=== PATIENT | male | born 1945 | race Caucasian/White ===

== ENCOUNTER 2018-05-06 13:53 | Outpatient (RCR) | payer MEDICARE, BC ==
[2016-01-04 09:52] VITALS: BMI 34.2
[~2018-05-06 13:53] MED LIST: ADV230RPT INH; ALBU8.5H IH; ASPI-1441 PO; ASPI81TA94 PO; ATE50 PO; CALC-771 PO; CALC-965 PO; CAR200 PO; CARB200C4 PO; CHOL100039 PO; ECON15CR10 TP; FLUT16SP19 NS; FLUT16SP20 NS; HCTZ25 PO; LOSA-54 PO; LOVA20TA99 PO; MELO-149 PO; NAPR1TAB10 PO; NAPR220C12 PO; NIA500 PO; OLME1TAB69 PO; OMEG-44 PO; OMEG1CAP PO; OMEP10CA40 PO; ONDA4TAB PO; OXYC-865 PO; PAN40 PO; TRAM-420 PO; TRAM1TAB PO; TRIORA TP
--- NOTE | 2018-05-06 15:09 | RADIOLOGY IMAGING REPORT ---
FACILITY: [facility] [place] PATIENT NAME: Reza Zelaya : 1945 MR: [id number] V: [id number] EXAM DATE: ORDERING PHYSICIAN: JIGNESH NAIR TECHNOLOGIST: Location: [facility] Patient: Reza Zelaya : 1945 Visit/Account:[id number] Date of Sevice: 05/06/2018 Exam type: CHEST PA AND LAT History: . Esophagus, chronic cough Comparison: July 30, 2016 Findings: All bibasilar scarring again noted. There is no evidence of acute appearing infiltrates, pleural eff usions or pulmonary edema. Cardiac silhouette is normal in size. Left shoulder arthroplasty is note d. IMPRESSION: 1. Bibasilar scarring appears unchanged Report Dictated By: Jodi Mata MD at 05/06/2018 3:03 PM Report E-Signed By: Jodi Mata MD at 05/06/2018 3:05 PM WSN:[email or web address]
--- NOTE | 2018-05-07 14:09 | RADIOLOGY IMAGING REPORT ---
FACILITY: [facility] PATIENT NAME: Reza Zelaya : 1945 MR: [id number] V: [id number] EXAM DATE: ORDERING PHYSICIAN: JIGNESH NAIR TECHNOLOGIST: Location: [facility] [place] Patient: Reza Zelaya : 1945 Visit/Account:[id number] Date of Sevice: 05/07/2018 DEXA Scan Clinical history: Osteoporosis screening. Comparison: None. HIP: Bone mineral density (BMD) measured in the Left total hip region correlates with a Z-score 1.0 and a T-score of 0.6 which is Normal as defined by the World Health Organization. The corresponding risk of fracture in the hip is Not increased compared with a young adult reference population. Bone mineral density (BMD) measured in the Femoral Neck region measures 1.002 g/cm2. FOREARM: The bone mineral density (BMD) measured in the ULTRADISTAL Left forearm, where trabecular bone predom inates, correlates with a Z-score 1.9 and a T-score of 1.1 which is normal as defined by the World He alth Organization. The corresponding risk of fracture in the distal forearm is normal compared with a young adult reference population. The bone mineral density (BMD) in the MIDSHAFT of the forearm, where cortical bone predominates, don elates with a Z-score -0.1 and a T-score of -1 which is as defined by the World Health Organization. The corresponding risk of fracture in the midshaft of the forearm is 2 times increased compared with a young adult reference population. IMPRESSION: 1. Left Hip: Normal. 2. Femoral Neck: Bone Mineral Density is 1.00 to g/cm2 3. Left Forearm: Normal. The next DEXA scan of this patient should include the following sites: Left hip and the left forearm. FRAX? WHO Fracture Risk Assessment Tool link: <http://www.shef.ac.uk/FRAX/tool.jsp?locationValue=9> PLEASE NOTE: 1) The World Health Organization defines low BMD as follows: T-score Normal > -1 Osteopenia < -1 and > -2.5 Osteoporosis < -2.5 without fractures Established osteoporosis < -2.5 with fractures 2) In general, you may wish to consider: Diagnosis Treatment Follow-up DEXA Normal BMD Prevention 2-3 years Osteopenia Prevention/therapy 1-2 years Osteoporosis Therapy Yearly 3) Fracture risk estimated from the T-score is more accurate for vertebral fractures (often spontane ous) than for hip fractures. Report Dictated By: Jodi Mata MD at 05/07/2018 2:04 PM Report E-Signed By: Jodi Mata MD at 05/07/2018 2:05 PM BETYN:[email or web address]
[2018-05-09] MEDS ORDERED: BARIUM SULFATE 176 GM BTL PO ONE (09:04)
[2018-05-09] MEDS ORDERED: BARIUM SULFATE 340 GM POWD ONE (09:04)
[2018-05-09] MEDS ORDERED: BARIUM SULFATE 148 GM POWDER ONE (09:10)
[2018-05-09] MEDS ORDERED: BARIUM SULFATE 240 ML ORAL SUS (NECTAR) ONE (09:10)
[2018-05-22] MEDS ORDERED: ADV230RPT INH (11:32)
[2018-05-22] MEDS ORDERED: ATOR40TA24 PO (11:32)
[2018-05-22] MEDS ORDERED: ACET-2708 PO (11:32)
[2018-05-22] MEDS ORDERED: CYAN100017 PO (11:32)
[2018-05-22] MEDS ORDERED: MULT-1335 PO (11:32)
[2018-05-22] MEDS ORDERED: OXYGENHOME INH (11:32)
[2018-05-22] MEDS ORDERED: METO25TA93 PO (11:32)
[2018-06-02] MEDS ORDERED: ECON15CR10 TP (14:20)
== END 2018-05-07 18:00 | disposition home or self-care (01) ==
LOC: RAD 13:53
PROVIDERS: ATTEND Nurse Practitioner Family
DX: Z13.820 Encounter for screening for osteoporosis (principal); K22.70 Barrett's esophagus without dysplasia; R05 Cough; K21.9 Gastro-esophageal reflux disease without esophagitis
CPT/HCPCS: 71046; 77080

== ENCOUNTER → 2018-05-09 | Outpatient (CLI) | payer MEDICARE, BC ==
[2016-01-04 09:52] VITALS: BMI 34.2
[~2018-05-09] MED LIST changes: +CARB200C2 PO; -CARB200C4 PO
--- NOTE | 2018-05-09 11:27 | SLP MODIFIED BARIUM SWALLOW ---
Speech Language Pathology Modified Barium Swallow Evaluation Report Date of Evaluation: 05/09/2018 Patient Name: Reza Zelaya Patient : 1945 Clinician: Leela Pace M.S., [facility] BACKGROUND The patient is a 72 year old male with history of Barretts esophagus and gastric polyps referred for an MBSS 2/2 reports of difficulty swallowing, coughing at meals, choking events, and globus sensation in pharynx. Oxygen Supplementation: none Level of Consciousness: non-altered Cognition: WFL Language: mild anomia Speech: WFL Voice: WFL Non-verbal Oral Structure and Function: WNL Pain with Swallow: denies MODIFIED BARIUM SWALLOW In conjunction with radiology, lateral view with trials of the following consistencies: 7.5 and 15 ml of thin liquid, thins via self-serve cup sip, pureed solids, mechanically soft solids, mixed consistencies, and regular solids. ORAL STAGE Within functional limits. Pt demonstrated tendency to consume large bites with trials of puree, regular solids, and mixed consistencies. Material was adequately masticated with timely a-p transit and lingual stripping wave. Mild residue was noted on lingual surface and base of tongue across PO trials. Material was efficiently cleared with use of double swallow. PHARYNGEAL STAGE Mild dysphagia. Pt exhibited delayed swallow onset varying from base of tongue to the level of the valleculae. Epiglottic inversion was adequate to support airway protection throughout majority of PO trials despite diminished hyolaryngeal excursion. Decreased timing of swallow mechanism and potential reduction in sensory response during initial, small bolus trial of thin liquids resulted in shallow penetration during the swallow. Base of tongue retraction and posterior pharyngeal wall movement were WFL. Thin Liquid: delayed swallow onset observed to the level of the valleculae with material spilling over apex of valleculae. Penetration occurred with initial trial (7.5 ml), but was not observed with subsequent attempts including 15 ml of thin liquid and thin liquids via self-serve cup sips. No notable residue in pharynx. Pureed Food: delayed swallow onset to the base of tongue. Trace residue noted in pyriforms. Mechanical Soft Foods: delayed swallow onset to the base of tongue. Trace residue noted in pyriforms. Mixed Consistencies: delayed swallow onset to the base of tongue. Trace residue noted in pyriforms. Regular Solids: delayed swallow onset to the base of tongue. Trace residue noted in pyriforms. Penetration/Aspiration Scale*: Thin liquid, 7.5 ml: Score of 2, material enters airway, remains above vocal folds, and is ejected from airway Thin liquid, 15 ml and cup sip: Score of 1, contrast does not enter airway Puree, soft, mixed, and regular solids: Score of 1, contrast does not enter airway *(Gamaliel et al. 1996) ESOPHAGEAL STAGE Prominence observed in posterior cervical esophagus against contrast. Pt reports an appointment has been scheduled for an EGD. Pt also reports hx of esophageal dilation. SUMMARY and RECOMMENDATIONS Aspiration Risk: mildly elevated risk 2/2 mildly delayed initiation of pharyngeal swallow, known history of esophageal dysphagia, and observed reflux on esophogram. Pts tendency to consume large bites at a rapid pace may further elevate aspiration and choking risk. Pt and were provided with education re : importance of consuming small bites and allowing extra time to participate in meals. 1. Diet: No need for modification in consistency of diet is indicated. Avoid problematic foods. 2. Patient was provided with verbal and visual education regarding swallow anatomy and safe swallow recommendations. 3. Recommend esophagogastroduodenoscopy (EGD). Thank you for this referral. Please call [phone] to contact the [facility]. Leela Pace M.S., [facility] [*] [facility]
--- NOTE | 2018-05-09 15:54 | RADIOLOGY IMAGING REPORT ---
FACILITY: [facility] [place] PATIENT NAME: Reza Zelaya : 1945 MR: [id number] V: [id number] EXAM DATE: ORDERING PHYSICIAN: MILENA ROMAN TECHNOLOGIST: Location: [facility] Patient: Reza Zelaya : 1945 Visit/Account:[id number] Date of Sevice: 05/09/2018 Exam type: ESOPHAGRAM History: Patient, aspiration .Comparison: None. Findings: Double contrast esophagram was performed with thick and thin barium and air contrast. There is mild narrowing at the cervical thoracic junction of the esophagus. There is transient spasm seen at the l evel of the sreekanth there is a small hiatal hernia and mild narrowing at the lower esophageal sphincte r although a 12 mm barium tablet passed freely into the stomach. A moderate amount of gastroesophage al reflux was observed. The fluoroscopy dose area product was 149.13 micro-Gillette per meter squared IMPRESSION: 1. Small hiatal hernia with a moderate amount of gastroesophageal reflux. There is mild narrowing a t the lower esophageal sphincter although 12 mm barium tablet passed freely into the stomach Mild narrowing at the cervical thoracic junction of the esophagus Transient spasm seen in the esophagus at the level the sreekanth Report Dictated By: Jodi Mata MD at 05/09/2018 3:47 PM Report E-Signed By: Jodi Mata MD at 05/09/2018 3:50 PM WSN:[email or web address]
--- NOTE | 2018-05-09 15:55 | RADIOLOGY IMAGING REPORT ---
FACILITY: [facility] [place] PATIENT NAME: Reza Zelaya : 1945 MR: [id number] V: [id number] EXAM DATE: [id number] ORDERING PHYSICIAN: MILENA ROMAN TECHNOLOGIST: Location: [facility] [place], [place] Patient: Reza Zelaya : 1945 Visit/Account:[id number] Date of Sevice: 05/09/2018 Exam type: ESOPH VIDEO SWALLOWING History: Dysphasia and aspiration Comparison: Esophagram performed today. Findings: The modified barium swallow was performed by the speech pathologist. The patient received thin bariu m and various food substances. There is mild to moderate esophageal dysphasia. Please see the [facility] pathologist report for complete details. The fluoroscopy dose area product was 143.89 micro-Gillette p er meter squared IMPRESSION: 1. As above Report Dictated By: Jodi Mata MD at 05/09/2018 3:50 PM Report E-Signed By: Jodi Mata MD at 05/09/2018 3:51 PM WSN:[email or web address]
== END ==
LOC: RAD 04:00
PROVIDERS: ATTEND Surgery
DX: K44.9 Diaphragmatic hernia without obstruction or gangrene (principal); K21.9 Gastro-esophageal reflux disease without esophagitis; K22.2 Esophageal obstruction
CPT/HCPCS: 74220; 74230

== ENCOUNTER 2018-05-30 02:13 | Day surgery (SDC) | payer MEDICARE, BC ==
[2016-01-04 09:52] VITALS: Ht 172.7 cm; Wt 93.0 kg
[~2018-05-30] VITALS: Ht 172.7 cm; Wt 93.0 kg
[2018-05-30] VITALS (7 sets, daily range): BP systolic 97–155; BP diastolic 66–94
[~2018-05-30 02:13] MED LIST changes: +ACET-2708 PO; +ATOR40TA24 PO; -CARB200C2 PO; +CARB200C4 PO; +CYAN100017 PO; +METO25TA93 PO; +MULT-1335 PO; +OXYGENHOME INH
[2018-05-30] MEDS ORDERED: NORMOSOL R SOLN(*) 1000 ML BAG 1,000 ML IV PRN (11:35)
[2018-05-30] MEDS ORDERED: LIDOCAINE/SOD BICARB 8.4% SYR ID ONE (11:35)
--- NOTE | 2018-05-30 13:20 | Short(Outpt) Discharge Summary ---
Discharge Summary Reason for Hosp/Final Diag: (1) Dysphagia Status: Chronic Hospital Course & Plan: EGD with biopsies and esophageal dilation and colonoscopy completed without problems. (2) Salvador's esophagus Status: Chronic (3) Colon cancer screening Status: Chronic Departure Discharge to: Home, Self Care Discharge Instructions Home Meds Active Scripts Losartan/Hydrochlorothiazide (LOSARTAN-HCTZ 100-25 MG TAB) 1 Each Tablet, 1 EACH PO QDAY for 30 Days, TAB Monitor BPs at home three times a day (AM - noon - PM). Do not restart BP medication until two consecutive readings are above 145 systolic. Prov:TEVIN TATE MD 01/04/16 Reported Medications Oxygen (OXYGEN) Inha, 2 L INH HS, L 05/22/18 Acetaminophen/Diphenhydramine (ACETAMINOPHEN PM CAPLET) 1 Each Tablet, 2 EACH PO QHS, TAB 05/22/18 Atorvastatin Calcium (LIPITOR) 40 Mg Tablet, 1 TAB PO HS, TAB 05/22/18 Metoprolol Tartrate (METOPROLOL TARTRATE) 25 Mg Tablet, 1 TAB PO HS, TAB 05/22/18 Cyanocobalamin (Vitamin B-12) (B-12) 1,000 Mcg Tablet, 1 TAB PO DAILY 05/22/18 Fluticasone/Salmeterol (ADVAIR HFA 230-21 MCG INHALER) 1 Inh Inh, 2 INH INH BID , INH 05/22/18 Multivitamin With Minerals (MULTIPLE VITAMIN) 1 Each Tablet, 2 EACH PO DAILY, TAB 05/22/18 Tramadol Hcl (TRAMADOL HCL) 50 Mg Tablet, 50 MG PO PRN, TAB 07/20/16 Fluticasone Prop 50 Mcg Ns (FLONASE 50 MCG NS) 16 Gm [place].susp, 2 SPRAYS NS QHS , BOT 01/03/16 Albuterol Sulfate 90 Mcg/Act (PROAIR HFA 90 MCG/ACT) 8.5 Gm Hfa.aer.ad, 2 PUFF IH QHS, INHALER PT TAKES NEEDED THROUGH-OUT THE DAY 01/03/16 [place]-3/Dha/Epa/Fish Oil (FISH OIL 500 MG SOFTGEL) 1 Each Capsule, 3 CAP PO QHS , CAPSULE 01/03/16 Aspirin (ASPIRIN) 81 Mg Tab.chew, 81 MG PO QHS, TAB.CHEW 01/03/16 Triamcinolone Acet 0.1% Dental Paste (KENALOG 0.1% DENTAL PASTE) 5 Gm Paste..g. , 1 JARED TP QHS, TUB 01/03/16 Cholecalciferol (Vitamin D3) (Vitamin D3) 10,000 Unit Tablet, 5000 MG PO QAM 01/03/16 Carbamazepine (CARBAMAZEPINE) 200 Mg Cpmp.12hr, 200 MG PO BID 01/03/16 Calcium Carbonate/Vitamin D3 (CALCIUM 500 + VIT D 200 CAPLET) 1 Each Tablet, 1 EACH PO TID 04/08/12 Pantoprazole Sod (Protonix) 40 Mg Tabec, 2 TAB PO QDAY@0830 04/08/12 Diet: Regular Activity: As Tolerated Special Instructions: Your upper endoscopy with biopsies and dilation and your colonoscopy were completed without problems. Unfortunately your bowel prep wasn't good, there was solid stool in your colon, so this cannot be considered an adequate screening colonoscopy. My office will call you in the next week to see how you're doing and to let you know the biopsy results from your lower esophagus where Salvador's occurs. I would recommend that we try again to complete your colonoscopy in the next 6 months with hopes of a better prep and without doughnut holes in your colon :-). Problem Qualifiers (1) Dysphagia: Dysphagia type: esophageal phase Qualified Codes: R13.10 - Dysphagia, unspecified (2) Salvador's esophagus: Salvador's esophagus type: without dysplasia Qualified Codes: K22.70 - Salvador 's esophagus without dysplasia MILENA ROMAN MD May 30, 2018 13:20
[2018-06-02] MEDS ORDERED: ECON15CR10 TP (14:20)
== END 2018-05-30 14:07 | disposition home or self-care (01) ==
LOC: OR 02:13
PROVIDERS: ATTEND Surgery
DX: Z12.11 Encounter for screening for malignant neoplasm of colon (principal); R13.10 Dysphagia, unspecified; K44.9 Diaphragmatic hernia without obstruction or gangrene
CPT/HCPCS: 00812; 43239; 43248; 88305; G0121

== ENCOUNTER 2018-07-02 00:08 | Day surgery (SDC) | payer MEDICARE, BC ==
[2016-01-04 09:52] VITALS: Ht 167.6 cm; Wt 93.4 kg
[~2018-07-02] VITALS: Ht 167.6 cm; Wt 93.4 kg
[~2018-07-02 00:08] MED LIST changes: +KETC15T TP
[2018-07-02] MEDS ORDERED: LIDOCAINE/SOD BICARB 8.4% SYR ID ONE (07:50)
[2018-07-02] MEDS ORDERED: NORMOSOL R SOLN(*) 1000 ML BAG 1,000 ML IV PRN (07:50)
[2018-07-02 07:51] VITALS: BP 158/84
[2018-07-02] MEDS ORDERED: PROPOFOL EMUL(*) 10MG/ML 20 ML 40 ML ONE (07:58)
[2018-07-02 09:48] VITALS: BP 115/67
--- NOTE | 2018-07-02 09:54 | Short(Outpt) Discharge Summary ---
Discharge Summary Reason for Hosp/Final Diag: (1) Colon cancer screening Status: Chronic Hospital Course & Plan: Colonoscopy with polypectomy x4 completed without problems. Departure Discharge to: Home, Self Care Discharge Instructions Home Meds Active Scripts Losartan/Hydrochlorothiazide (LOSARTAN-HCTZ 100-25 MG TAB) 1 Each Tablet, 1 EACH PO QDAY for 30 Days, TAB Monitor BPs at home three times a day (AM - noon - PM). Do not restart BP medication until two consecutive readings are above 145 systolic. Prov:TEVIN TATE MD 01/04/16 Reported Medications Ketoconazole (KETOCONAZOLE) 15 Gm Cream..g., 15 GM TP QDAY, #15 TUBE 06/19/18 Tramadol Hcl (TRAMADOL HCL) 50 Mg Tablet, 50 MG PO TID PRN for PAIN, TAB 06/19/18 Oxygen (OXYGEN) Inha, 2 L INH HS, L 05/22/18 Acetaminophen/Diphenhydramine (ACETAMINOPHEN PM CAPLET) 1 Each Tablet, 2 EACH PO QHS, TAB 05/22/18 Atorvastatin Calcium (LIPITOR) 40 Mg Tablet, 1 TAB PO HS, TAB 05/22/18 Metoprolol Tartrate (METOPROLOL TARTRATE) 25 Mg Tablet, 1 TAB PO HS, TAB 05/22/18 Cyanocobalamin (Vitamin B-12) (B-12) 1,000 Mcg Tablet, 1 TAB PO DAILY 05/22/18 Fluticasone/Salmeterol (ADVAIR HFA 230-21 MCG INHALER) 1 Inh Inh, 2 INH INH BID, INH 05/22/18 Multivitamin With Minerals (MULTIPLE VITAMIN) 1 Each Tablet, 2 EACH PO DAILY, TAB 05/22/18 Fluticasone Prop 50 Mcg Ns (FLONASE 50 MCG NS) 16 Gm [place].susp, 2 SPRAYS NS QHS, BOT 01/03/16 Albuterol Sulfate 90 Mcg/Act (PROAIR HFA 90 MCG/ACT) 8.5 Gm Hfa.aer.ad, 2 PUFF IH QHS, INHALER PT TAKES NEEDED THROUGH-OUT THE DAY 01/03/16 [place]-3/Dha/Epa/Fish Oil (FISH OIL 500 MG SOFTGEL) 1 Each Capsule, 3 CAP PO QHS, CAPSULE 01/03/16 Aspirin (ASPIRIN) 81 Mg Tab.chew, 81 MG PO QHS, TAB.CHEW 01/03/16 Cholecalciferol (Vitamin D3) (Vitamin D3) 10,000 Unit Tablet, 5000 MG PO QAM 01/03/16 Carbamazepine (CARBAMAZEPINE) 200 Mg Cpmp.12hr, 200 MG PO BID 01/03/16 Calcium Carbonate/Vitamin D3 (CALCIUM 500 + VIT D 200 CAPLET) 1 Each Tablet, 1 EACH PO TID 04/08/12 Pantoprazole Sod (Protonix) 40 Mg Tabec, 2 TAB PO QDAY@0830 04/08/12 Diet: Regular Activity: As Tolerated Special Instructions: Your colonoscopy was completed without problems and your prep was good (Good Job!!). I removed 4 small polyps from your colon and they were sent to pathology. My office will call you in the next week or so and let you know when your next colonoscopy should be (3, 5, or 10 years) depending on the pathology results. I also recommend that you undergo another upper endoscopy in 2 years for surveillance due to Salvador's esophagus. MILENA ROMAN MD Jul 02, 2018 09:54
[2018-07-02 10:08] VITALS: BP 125/78
[2018-07-02 10:35] VITALS: BP 151/91
[2018-07-02 10:37] VITALS: BP 156/90
== END 2018-07-02 11:00 | disposition home or self-care (01) ==
LOC: OR 00:08
PROVIDERS: ATTEND Surgery
DX: Z12.11 Encounter for screening for malignant neoplasm of colon (principal); K63.5 Polyp of colon; K62.1 Rectal polyp
CPT/HCPCS: 00811; 45385; 88305; J2704

== ENCOUNTER → 2019-05-05 | Outpatient (CLI) | payer MEDICARE, BC ==
[2016-01-04 09:52] VITALS: BMI 34.2
--- NOTE | 2019-05-05 16:58 | EKG ---
FACILITY: [facility] [place] PATIENT NAME: MYA KOROMA : [id number] MR: [id number] V: [id number] EXAM DATE: ORDERING PHYSICIAN: BILLY JUAREZ TECHNOLOGIST: Test Reason : pre-op Blood Pressure : / mmHG Vent. 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
== END ==
LOC: LAB 15:40
PROVIDERS: ATTEND Orthopaedic Surgery
DX: Z01.810 Encounter for preprocedural cardiovascular examination (principal); Z01.812 Encounter for preprocedural laboratory examination; S83.242A Other tear of medial meniscus, current injury, left knee, initial encounter; I10 Essential (primary) hypertension; J44.9 Chronic obstructive pulmonary disease, unspecified; Z87.891 Personal history of nicotine dependence; Z86.69 Personal history of other diseases of the nervous system and sense organs; Z99.81 Dependence on supplemental oxygen
CPT/HCPCS: 36415; 80156; 93005

== ENCOUNTER → 2019-06-04 | Outpatient (CLI) | payer MEDICARE, BC ==
[2016-01-04 09:52] VITALS: BMI 34.2
--- NOTE | 2019-06-04 09:57 | RADIOLOGY IMAGING REPORT ---
FACILITY: [facility] PATIENT NAME: Reza Zelaya : 1945 MR: [id number] V: [id number] EXAM DATE: ORDERING PHYSICIAN: JIGNESH NAIR TECHNOLOGIST: Location: [facility] [place] Patient: Reza Zelaya : 1945 Visit/Account:[id number] Date of Sevice: 06/04/2019 EXAMINATION: Ultrasound aorta with Doppler evaluation HISTORY: History of tobacco smoking COMPARISON: None. FINDINGS: Suprarenal abdominal aorta: 2.2 x 2.4 cm AP and transverse dimensions Superior infrarenal abdominal aorta: 1.6 x 1.4 cm AP and transverse dimensions Mid infrarenal abdominal aorta: 1.5 x 1.5 cm AP and transverse dimensions Inferior infrarenal abdominal aorta: 1.3 x 1.3 cm AP and transverse dimensions Proximal common iliac artery diameter: Left 1.0 cm; right 0.9 cm Aorta wall: There is mild wall plaque. Aorta and proximal common iliac arteries are patent by duplex Doppler ultrasound. IMPRESSION: No abdominal aortic aneurysm. Report Dictated By: Reese Blue MD at 06/04/2019 9:44 AM Report E-Signed By: Reese Blue MD at 06/04/2019 9:49 AM WSN:[email or web address]
== END ==
LOC: US 00:27
PROVIDERS: ATTEND Nurse Practitioner Family
DX: Z87.891 Personal history of nicotine dependence (principal)
CPT/HCPCS: 93979